=== PATIENT | male | born 2000 | race African-American/Black ===

== ENCOUNTER 2024-01-09 08:12 | Emergency (ER) | payer OTHER ==
[~2024-01-09] VITALS: Ht 172.7 cm; Wt 87.0 kg
[2024-01-09] MEDS: ASPIRIN 81MG CHEW TABLET PO ONE (08:55)
[2024-01-09 08:58] LABS: BASO % 0.5 % (0.0-1.0); EOS # 0.1 10^3/uL (0.0-0.5); EOS % 2.7 % (0.0-3.0); HEMATOCRIT 44.5 % (42.0-52.0); HEMOGLOBIN 15.1 g/dl (13.5-17.5); LYMPH # 1.4 10^3/uL (1.5-5.0); LYMPH % 37.4 % (24.0-44.0); MEAN CORPUSCULAR HEMOGLOBIN 28.9 pg (27.0-33.0); MEAN CORPUSCULAR HGB CONC 33.9 g/dl (32.0-36.5); MEAN CORPUSCULAR VOLUME 85.2 fl (80.0-96.0); MONO # 0.4 10^3/uL (0.0-0.8); MONO % 9.3 % (2.0-8.0); NEUTROPHILS # 1.9 10^3/uL (1.5-8.5); NEUTROPHILS % 50.1 % (36.0-66.0); PLATELET COUNT, AUTOMATED 245 10^3/uL (150-450); RED BLOOD COUNT 5.22 10^6/uL (4.30-6.10); WHITE BLOOD COUNT 3.8 10^3/uL (4.0-10.0)
[2024-01-09] MEDS: MAALOX 30 ML SUSP *UDC PO ONE (09:05)
[2024-01-09 09:12] LABS: D-DIMER QUANT < 0.27 ug/mL (<0.5); INR 1.07; PARTIAL THROMBOPLASTIN TIME 31.4 SECONDS (24.8-34.2); PROTHROMBIN TIME 13.6 SECONDS (12.5-14.5)
[2024-01-09 09:27] LABS: CK-MB VALUE MASS 1.2 NG/ML (<3.6)
[2024-01-09 09:30] LABS: ALBUMIN 4.3 G/DL (3.2-5.2); ALKALINE PHOSPHATASE 68 U/L (46-116); ALT/SGPT 30 U/L (7.0-40); AST/SGOT 24 U/L (<34); BILIRUBIN,DIRECT 0.4 MG/DL (<0.4); BILIRUBIN,TOTAL 1.2 MG/DL (0.3-1.2); BLOOD UREA NITROGEN 12 MG/DL (9-23); CALCIUM LEVEL 9.6 MG/DL (8.5-10.1); CARBON DIOXIDE LEVEL 29 MMOL/L (20-31); CHLORIDE LEVEL 110 MMOL/L (98-107); CREATININE FOR GFR 1.03 MG/DL (0.70-1.30); GLOMERULAR FILTRATION RATE > 60.0 (>60); GLUCOSE, FASTING 86 MG/DL (60-100); POTASSIUM SERUM 4.3 MMOL/L (3.5-5.1); SODIUM LEVEL 142 MMOL/L (136-145)
[2024-01-09 09:31] LABS: FREE T4 1.36 NG/DL (0.89-1.76); THYROID STIMULATING HORMONE 0.537 uIU/ML (0.55-4.78)
[2024-01-09 09:38] LABS: CPK CREATINE PHOSPHOKINASE 451 U/L (46-171); MB/CK RELATIVE INDEX 0.26 (< OR =4)
[2024-01-09 10:43] LABS: CK-MB VALUE MASS < 1.0 NG/ML (<3.6)
[2024-01-09 10:48] LABS: CPK CREATINE PHOSPHOKINASE 430 U/L (46-171); MB/CK RELATIVE INDEX 0.23 (< OR =4)
[2024-01-09 12:27] LABS: MB/CK RELATIVE INDEX 0.25 (< OR =4)
[2024-01-09 14:10] VITALS: BP 128/82; TEMP 98.3; O2SAT 97
== END 2024-01-09 14:20 | disposition home or self-care (01) ==
LOC: M ED 08:12
DX: R07.9 Chest pain, unspecified (principal); R00.1 Bradycardia, unspecified; I45.10 Unspecified right bundle-branch block; Z91.013 Allergy to seafood